=== PATIENT | female | born 1995 | race Caucasian/White ===

== ENCOUNTER → 2018-11-07 | Outpatient (REF) | payer BC ==
[~2018-11-07] MED LIST: /CARB4TA OR; /CARBXR20T OR; CLIN150C PO; LYRI75CA OR; MORPHINE PO; PAME50CA OR; PERC5TAB8 OR; PREG100CA OR; TEGR200T OR; TEGR200T PO; lioresal PO; nortriptyline PO
== END ==
LOC: M SFHCWAGY 15:49
PROVIDERS: ATTEND Nurse Practitioner Family
DX: Z12.4 Encounter for screening for malignant neoplasm of cervix (principal)

== ENCOUNTER 2019-01-20 05:27 | Emergency (ER) | payer BC ==
[~2019-01-20] VITALS: Ht 162.6 cm; Wt 86.4 kg
[2019-01-20] MEDS ORDERED: MIRE1IUD IU (05:47)
[2019-01-20] MEDS ORDERED: IBUP-1022 PO (05:48)
[2019-01-20] MEDS ORDERED: BACL1TAB9 PO (06:12)
[2019-01-20] MEDS ORDERED: MORPHINE 10 MG/ML 1ML VIAL (J2270) IM ONE (06:15)
[2019-01-20] MEDS ORDERED: BACLOFEN 10 MG TAB PO ONE (06:15)
[2019-01-20 06:41] VITALS: BP 130/87
== END 2019-01-20 06:42 | disposition home or self-care (01) ==
LOC: M ED 05:27
DX: G50.0 Trigeminal neuralgia (principal); Z88.8 Allergy status to other drugs, medicaments and biological substances; Z88.1 Allergy status to other antibiotic agents; Z91.040 Latex allergy status; Z79.2 Long term (current) use of antibiotics
CPT/HCPCS: 96372; 99283; J2270

== ENCOUNTER → 2021-12-01 | Outpatient (REF) | payer BC ==
[~2021-12-01] MED LIST changes: -/CARB4TA OR; -/CARBXR20T OR; +BACL1TAB9 PO; +IBUP-1022 PO; +MIRE1IUD IU; +TEGR1TAB OR; +TEGR1TAB2 OR
== END ==
LOC: M SFHCWAGY 10:18
PROVIDERS: ATTEND Advanced Practice Midwife
DX: Z34.93 Encounter for supervision of normal pregnancy, unspecified, third trimester (principal); Z3A.35 35 weeks gestation of pregnancy

== ENCOUNTER 2021-12-22 17:30 | Outpatient (CLI) | payer BC ==
[~2021-12-22] VITALS: Ht 162.6 cm; Wt 115.0 kg
[2021-12-22] MEDS ORDERED: PRENTAB9 PO (18:15)
[2021-12-22] MEDS ORDERED: HOME MED LIST COMPLETE! XX SCH (18:15)
[2021-12-22 18:21] VITALS: BP 115/56
[2021-12-22] MEDS ORDERED: ACETAMINOPHEN 500 MG TAB PO PRN (19:20)
[2021-12-22] MEDS ORDERED: LACTATED RINGER'S 1000 ML IV ONE (19:20)
[2021-12-22 19:27] VITALS: BP 130/58
[2021-12-22 20:20] VITALS: BP 138/63
[2021-12-22 21:22] VITALS: BP 127/74
[2021-12-22] MEDS ORDERED: LR 1,000 ML IV SCH (21:45)
[2021-12-22 21:59] VITALS: BP 95/50
[2021-12-22 22:50] VITALS: BP 119/63
== END 2021-12-22 23:05 | disposition home or self-care (01) ==
LOC: M LDO 17:30
PROVIDERS: ATTEND Advanced Practice Midwife
DX: O26.893 Other specified pregnancy related conditions, third trimester (principal); R51.9 Headache, unspecified; Z3A.38 38 weeks gestation of pregnancy
CPT/HCPCS: 59025; 87426; 96360; 96361; G0378; G0463

== ENCOUNTER 2022-01-01 22:41 | Inpatient (IN) | payer BC ==
[~2022-01-01] VITALS: Ht 162.6 cm; Wt 116.8 kg
[~2022-01-01 22:41] MED LIST changes: +PRENTAB9 PO
[2022-01-01 23:02] VITALS: BP 143/93
[2022-01-01] MEDS ORDERED: HOME MED LIST COMPLETE! XX SCH (23:05)
[2022-01-01] MEDS ORDERED: TUMS500C PO (23:05)
[2022-01-01 23:33] LABS: HEMATOCRIT 36.4 % (36.0-47.0); HEMOGLOBIN 11.9 g/dl (12.0-15.5); MEAN CORPUSCULAR HEMOGLOBIN 29.2 pg (27.0-33.0); MEAN CORPUSCULAR HGB CONC 32.7 g/dl (32.0-36.5); MEAN CORPUSCULAR VOLUME 89.4 fl (80.0-96.0); PLATELET COUNT, AUTOMATED 178 10^3/uL (150-450); RED BLOOD COUNT 4.07 10^6/uL (4.00-5.40); WHITE BLOOD COUNT 8.6 10^3/uL (4.0-10.0)
[2022-01-02] VITALS (15 sets, daily range): BP systolic 110–150; BP diastolic 58–92
[2022-01-02] MEDS: miSOPROStol 50MCG 1/2 TABLET SL SCH ×2 (00:33→05:52)
[2022-01-02] MEDS ORDERED: LR 1,000 ML IV ONE (06:13)
[2022-01-02] MEDS ORDERED: LR 1,000 ML IV SCH (07:30)
[2022-01-02] MEDS ORDERED: BICITRA 30ML SOLN UDC PO ONE (07:45)
[2022-01-02] MEDS ORDERED: ceFAZolin SOD 2 GM in IV 1 EA IV ONE (07:45)
[2022-01-02] MEDS ORDERED: MORPHINE PRES-FREE INJ 10 MG/10 ML VIAL (J2274) As Ordered ONE (08:59)
[2022-01-02] MEDS ORDERED: METOCLOPRAMIDE INJ 10MG/2ML VIAL (J2765 PER 1) As Ordered ONE (09:02)
[2022-01-02] MEDS ORDERED: OXYTOCIN INJ 10 UNITS/ML VIAL (J2590) As Ordered ONE (09:06)
[2022-01-02] MEDS ORDERED: dexameTHASONE 4 MG/ML 1ML VIAL (J1100 PER 1MG) As Ordered ONE (09:31)
[2022-01-02] MEDS ORDERED: ONDANSETRON 4MG/2ML VIAL As Ordered ONE (09:31)
[2022-01-02] MEDS ORDERED: KETOROLAC 60MG 2ML VIAL As Ordered ONE (09:31)
[2022-01-02] MEDS ORDERED: ACETAMINOPHEN 1000MG 100ML IV BTL (OFIRMEV) (J0131 PER 10MG) As Ordered ONE (09:34)
[2022-01-02] MEDS ORDERED: ONDANSETRON 4MG/2ML VIAL IV PRN ×2 (10:03→11:30)
[2022-01-02] MEDS ORDERED: NALBUPHINE HCL 10 MG/ML AMP (J2300) IV PRN ×2 (10:03→11:30)
[2022-01-02] MEDS ORDERED: METOCLOPRAMIDE INJ 10MG/2ML VIAL (J2765 PER 1) IV PRN (10:03)
[2022-01-02] MEDS ORDERED: diphenhydrAMINE 50MG/ML VIAL (J1200) IV PRN (10:03)
[2022-01-02] MEDS ORDERED: NALOXONE INJ 0.4MG/1ML VIAL (J2310 PER 1MG) IV PRN ×2 (10:03)
[2022-01-02] MEDS ORDERED: OXYTOCIN 30 UNITS IN 0.9% NaCl 500ML IV BAG (J2590) As Ordered ONE (11:05)
[2022-01-02] MEDS ORDERED: SIMETHICONE 80MG CHEW TAB PO PRN (11:05)
[2022-01-02] MEDS ORDERED: PERCOCET 5MG/325MG TAB PO PRN (11:05)
[2022-01-02] MEDS ORDERED: OXYTOCIN DRIP 30 UNITS in IV 1 EA IV SCH (11:05)
[2022-01-02] MEDS ORDERED: RHOGAM 300 MCG (1500 IU) INJ (J2790) IM SCH (11:05)
[2022-01-02] MEDS ORDERED: ONDANSETRON 4 MG TAB PO PRN (11:05)
[2022-01-02] MEDS ORDERED: MEASLES,MUMPS,RUBELLA VACCINE INJ (MMR-II) (90707) SC SCH (11:05)
[2022-01-02] MEDS ORDERED: DOCUSATE SODIUM 100MG CAPSULE PO PRN (11:05)
[2022-01-02] MEDS ORDERED: HYDROMORPHONE HCL 0.5 MG/ 0.5 ML SYRINGE (J1170 PER 1) IV PRN (11:30)
[2022-01-02] MEDS ORDERED: fentaNYL 100 MCG/2 ML INJECTION IV PRN (11:30)
[2022-01-02] MEDS ORDERED: oxyCODONE 5MG TAB PO PRN (11:30)
[2022-01-02] MEDS ORDERED: MEPERIDINE INJ 25 MG/ML VIAL (J2175) IV PRN (11:30)
[2022-01-02] MEDS ORDERED: MEPERIDINE INJ 25 MG/ML VIAL (J2175) As Ordered ONE (11:34)
[2022-01-02] MEDS: LR 1,000 ML IV SCH ×2 (15:22→19:05)
[2022-01-02] MEDS ORDERED: IBUP80TA PO (16:43)
[2022-01-02] MEDS ORDERED: OXYC1TAB23 PO (16:43)
[2022-01-02] MEDS: KETOROLAC 30 MG/ML 1ML VIAL IV SCH (16:45)
[2022-01-03] MEDS: KETOROLAC 30 MG/ML 1ML VIAL IV SCH ×2 (01:00→05:02)
[2022-01-03 02:00] VITALS: BP 131/71
[2022-01-03] MEDS: LR 1,000 ML IV SCH (03:05)
[2022-01-03 05:37] VITALS: BP 137/73
[2022-01-03 06:23] LABS: HEMATOCRIT 32.5 % (36.0-47.0); HEMOGLOBIN 10.4 g/dl (12.0-15.5); MEAN CORPUSCULAR HEMOGLOBIN 29.2 pg (27.0-33.0); MEAN CORPUSCULAR VOLUME 91.3 fl (80.0-96.0); PLATELET COUNT, AUTOMATED 162 10^3/uL (150-450); RED BLOOD COUNT 3.56 10^6/uL (4.00-5.40); WHITE BLOOD COUNT 10.6 10^3/uL (4.0-10.0)
[2022-01-03] MEDS: PRENATAL VITAMINS CHEWABLE TABLET PO SCH (09:22)
[2022-01-03 10:00] VITALS: BP 160/74
[2022-01-03] MEDS: IBUPROFEN 800 MG TAB PO SCH ×2 (13:35→20:08)
[2022-01-03 14:07] VITALS: BP 156/87
[2022-01-03 18:00] VITALS: BP 132/63
[2022-01-03] MEDS: PERCOCET 5MG/325MG TAB PO PRN (18:08)
[2022-01-03 21:54] VITALS: BP 140/77
[2022-01-04] MEDS: PERCOCET 5MG/325MG TAB PO PRN (01:48)
[2022-01-04 02:05] VITALS: BP 147/78
[2022-01-04] MEDS: IBUPROFEN 800 MG TAB PO SCH ×2 (04:51→13:05)
[2022-01-04 06:34] VITALS: BP 136/75
[2022-01-04 07:30] VITALS: BP 135/80
[2022-01-04] MEDS: PRENATAL VITAMINS CHEWABLE TABLET PO SCH (08:51)
== END 2022-01-04 14:19 | disposition home or self-care (01) | DRG 540 ==
LOC: M LDI 22:41 → M OBS 01-02 12:55
PROVIDERS: ADMIT Specialist; ATTEND Specialist
PROC: 10D00Z1 Extraction of Products of Conception, Low, Open Approach (ICD-10-PCS; principal; 2022-01-02 09:00)
DX: O48.0 Post-term pregnancy (principal); O76 Abnormality in fetal heart rate and rhythm complicating labor and delivery; Z37.0 Single live birth; Z3A.40 40 weeks gestation of pregnancy; Z91.040 Latex allergy status; Z88.2 Allergy status to sulfonamides; Z88.8 Allergy status to other drugs, medicaments and biological substances

== ENCOUNTER → 2024-01-31 | Outpatient (REF) | payer OTHER, BC ==
[~2024-01-31] MED LIST changes: +IBUP80TA PO; +OXYC1TAB23 PO; +TUMS500C PO
== END ==
LOC: M SFHCDERM 12:48
PROVIDERS: ATTEND Nurse Practitioner Family
DX: L08.9 Local infection of the skin and subcutaneous tissue, unspecified (principal)

== ENCOUNTER → 2024-03-06 | Outpatient (REF) | payer OTHER | LOC: M SFHCDERM 12:09 | PROVIDERS: ATTEND Nurse Practitioner Family | DX: L08.9 Local infection of the skin and subcutaneous tissue, unspecified (principal) ==

== ENCOUNTER → 2024-06-06 | Outpatient (REF) | payer OTHER | LOC: M PLALAB 16:13 | PROVIDERS: ATTEND Advanced Practice Midwife | DX: Z12.4 Encounter for screening for malignant neoplasm of cervix (principal) ==

== ENCOUNTER → 2024-09-26 | Outpatient (REF) | payer OTHER | LOC: M PLALAB 12:07 | PROVIDERS: ATTEND Obstetrics & Gynecology | DX: O34.211 Maternal care for low transverse scar from previous cesarean delivery (principal); Z3A.00 Weeks of gestation of pregnancy not specified ==

== ENCOUNTER → 2024-10-07 | Outpatient (REF) | payer OTHER ==
[2024-10-07 18:02] LABS: HEMATOCRIT 41.3 % (36.0-47.0); HEMOGLOBIN 14.8 g/dl (12.0-15.5); MEAN CORPUSCULAR HEMOGLOBIN 33.7 pg (27.0-33.0); MEAN CORPUSCULAR HGB CONC 35.8 g/dl (32.0-36.5); MEAN CORPUSCULAR VOLUME 94.1 fl (80.0-96.0); PLATELET COUNT, AUTOMATED 294 10^3/uL (150-450); RED BLOOD COUNT 4.39 10^6/uL (4.00-5.40)
[2024-10-07 19:07] LABS: HIV 1&2 SCREEN NEGATIVE (NEGATIVE)
[2024-10-07 19:15] LABS: HEPATITIS C VIRUS ABY INDEX 0.06 INDEX (<0.8)
== END ==
LOC: M LABDRWAD 16:48 → M SFHCWAGY 16:48
PROVIDERS: ATTEND Obstetrics & Gynecology
DX: Z34.81 Encounter for supervision of other normal pregnancy, first trimester (principal)

== ENCOUNTER → 2024-10-22 | Outpatient (REF) | payer OTHER ==
[2024-10-22 19:24] LABS: GC DNA AMPLIFICATION NEGATIVE (NEGATIVE)
== END ==
LOC: M SFHCWAGY 17:09
PROVIDERS: ATTEND Obstetrics & Gynecology
DX: Z34.81 Encounter for supervision of other normal pregnancy, first trimester (principal)

== ENCOUNTER → 2024-12-13 | Outpatient (CLI) | payer OTHER | LOC: M WHC 08:32 | PROVIDERS: ATTEND Nurse Practitioner Family | DX: Z34.81 Encounter for supervision of other normal pregnancy, first trimester (principal) ==

== ENCOUNTER → 2025-01-14 | Outpatient (REF) | payer OTHER | LOC: M SFHCPLAZ 17:15 | PROVIDERS: ATTEND Physician Assistant Medical | DX: J06.9 Acute upper respiratory infection, unspecified (principal) ==

== ENCOUNTER → 2025-01-30 | Outpatient (REF) | payer OTHER ==
[2025-01-30 15:32] LABS: HEMATOCRIT 41.3 % (36.0-47.0); HEMOGLOBIN 13.3 g/dl (12.0-15.5); MEAN CORPUSCULAR HGB CONC 32.2 g/dl (32.0-36.5); MEAN CORPUSCULAR VOLUME 93.2 fl (80.0-96.0); PLATELET COUNT, AUTOMATED 185 10^3/uL (150-450); RED BLOOD COUNT 4.43 10^6/uL (4.00-5.40); WHITE BLOOD COUNT 9.2 10^3/uL (4.0-10.0)
[2025-01-30 16:03] LABS: GLUCOSE CHALLENGE TEST 1 HOUR 105 MG/DL (LESS THAN 140)
[2025-01-30 16:45] LABS: HIV 1&2 SCREEN NEGATIVE (NEGATIVE)
[2025-01-30 16:51] LABS: HEPATITIS C VIRUS ABY INDEX 0.02 INDEX (<0.8)
[2025-01-30 17:12] LABS: GC DNA AMPLIFICATION NEGATIVE (NEGATIVE)
[2025-01-31 14:11] LABS: Trichomonas vaginalis (AMP) NOT DETECTED (NEGATIVE)
== END ==
LOC: M PLALAB 09:48
PROVIDERS: ATTEND Nurse Practitioner Family
DX: Z34.80 Encounter for supervision of other normal pregnancy, unspecified trimester (principal)

== ENCOUNTER → 2025-02-03 | Outpatient (REF) | payer OTHER | LOC: M SFHCADAM 12:12 | PROVIDERS: ATTEND Family Medicine | DX: R05.1 Acute cough (principal); Z53.9 Procedure and treatment not carried out, unspecified reason ==

== ENCOUNTER → 2025-03-20 | Outpatient (CLI) | payer OTHER | LOC: M WHC 13:34 | PROVIDERS: ATTEND Nurse Practitioner Family | DX: O26.843 Uterine size-date discrepancy, third trimester (principal); Z3A.33 33 weeks gestation of pregnancy ==

== ENCOUNTER → 2025-04-09 | Outpatient (REF) | payer OTHER | LOC: M SFHCWAGY 15:08 | PROVIDERS: ATTEND Specialist | DX: Z34.83 Encounter for supervision of other normal pregnancy, third trimester (principal) ==

== ENCOUNTER → 2025-11-04 | Outpatient (CLI) | payer OTHER ==
[~2025-11-04] MED LIST changes: +ALBU8.5H INH; +BUDE180A2 INH; +COLA100C5 PO; -IBUP-1022 PO; +IBUP600T42 PO
== END ==
LOC: M ADAMS 09:03
PROVIDERS: ATTEND Physician Assistant
DX: J45.40 Moderate persistent asthma, uncomplicated (principal)